=== PATIENT | female | born 1995 | race Caucasian/White ===

== ENCOUNTER → 2025-05-13 | Outpatient (CLI) | payer OTHER ==
[2025-05-13 15:43] LABS: PLATELET COUNT, AUTOMATED 334 10^3/uL (150-450)
[2025-05-13 15:47] LABS: LDH LACTATE DEHYDROGENASE 167 U/L (120-246)
[2025-05-13 15:48] LABS: ALT/SGPT 54 U/L (7.0-40); AST/SGOT 34 U/L (<34); CREATININE FOR GFR 0.63 MG/DL (0.55-1.30); GLOMERULAR FILTRATION RATE > 90.0 (>60)
[2025-05-13 16:19] LABS: TOTAL PROTEIN,RANDOM URINE < 6.0 MG/DL (0.0-14.0)
[2025-05-13 16:23] LABS: HIV 1&2 SCREEN NEGATIVE (NEGATIVE)
[2025-05-13 16:34] LABS: HEPATITIS C VIRUS ABY INDEX < 0.02 INDEX (<0.8)
[2025-05-13 16:52] LABS: Trichomonas vaginalis (AMP) NOT DETECTED (NEGATIVE)
[2025-05-13 17:15] LABS: GC DNA AMPLIFICATION NEGATIVE (NEGATIVE)
== END ==
LOC: M PLALAB 14:04
PROVIDERS: ATTEND Obstetrics & Gynecology
DX: O09.291 Supervision of pregnancy with other poor reproductive or obstetric history, first trimester (principal); Z3A.00 Weeks of gestation of pregnancy not specified; Z13.79 Encounter for other screening for genetic and chromosomal anomalies; Z13.71 Encounter for nonprocreative screening for genetic disease carrier status

== ENCOUNTER → 2025-07-09 | Outpatient (CLI) | payer OTHER | LOC: M WHC 08:00 | PROVIDERS: ATTEND Obstetrics & Gynecology | DX: Z34.92 Encounter for supervision of normal pregnancy, unspecified, second trimester (principal) ==

== ENCOUNTER → 2025-07-21 | Outpatient (REF) | payer OTHER | LOC: M SFHCWAGY 11:59 | PROVIDERS: ATTEND Advanced Practice Midwife | DX: R82.90 Unspecified abnormal findings in urine (principal) ==

== ENCOUNTER → 2025-08-10 | Outpatient (CLI) | payer OTHER | LOC: M WHC 08:40 | PROVIDERS: ATTEND Advanced Practice Midwife | DX: Z34.82 Encounter for supervision of other normal pregnancy, second trimester (principal) ==

== ENCOUNTER → 2025-08-31 | Outpatient (CLI) | payer OTHER ==
[2025-08-31 13:11] LABS: PLATELET COUNT, AUTOMATED 311 10^3/uL (150-450)
[2025-08-31 13:23] LABS: GLUCOSE CHALLENGE TEST 1 HOUR 78 MG/DL (LESS THAN 140)
[2025-08-31 13:53] LABS: HIV 1&2 SCREEN NEGATIVE (NEGATIVE)
[2025-08-31 14:01] LABS: HEPATITIS C VIRUS ABY INDEX 0.04 INDEX (<0.8)
[2025-08-31 14:17] LABS: Trichomonas vaginalis (AMP) NOT DETECTED (NEGATIVE)
[2025-08-31 14:40] LABS: GC DNA AMPLIFICATION NEGATIVE (NEGATIVE)
== END ==
LOC: M PLALAB 10:24
PROVIDERS: ATTEND Advanced Practice Midwife
DX: Z34.82 Encounter for supervision of other normal pregnancy, second trimester (principal)